=== PATIENT | male | born 1990 | race African-American/Black ===

== ENCOUNTER 2020-05-11 06:09 | Emergency (ER) | payer OTHER, SELFPAY ==
[2020-05-11 06:14] VITALS: BP 126/58; PULSE 64; RESP 16; TEMP 36.7; O2SAT 97; BMI 27.4
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
[2020-05-11] MEDS: Acetaminophen 325 MG TABLET 975 MG PO (06:42)
== END 2020-05-11 07:03 | disposition home or self-care (01) ==
LOC: HO.ED 06:43
PROVIDERS: Emergency Provider Emergency Medicine Emergency Medical Services
DX: S00.83XA Contusion of other part of head, initial encounter (principal); S01.81XA Laceration without foreign body of other part of head, initial encounter; Y00.XXXA Assault by blunt object, initial encounter; R11.0 Nausea; Y93.9 Activity, unspecified; Y92.9 Unspecified place or not applicable; Y99.9 Unspecified external cause status
CPT/HCPCS: 12011; 99283; 99284